=== PATIENT | male | born 1950 | race American Indian/Alaskan Native ===

== ENCOUNTER 2017-08-25 04:40 | Inpatient (IN) | payer MEDICARE ==
[2017-08-25 04:42] VITALS: BMI 31.2
--- NOTE | 2017-08-25 04:49 | ED PDOC ---
Arrival/HPI - General Time Seen by Provider: 08/25/17 04:44 Historian: Spouse - Critical Care Critical Care Minutes: 45 minutes - History of Present Illness Narrative History of Present Illness (Text): 08/25/17 04:42 67 year old male presents to the emergency department via EMS as CODE STROKE due to aphasia and right sided weakness. Patient was last known well at 00:30 which was approximately 4 hours prior to arrival. noticed symptoms 30 minutes ago when patient awoke and called emergency services. She states patient is having trouble finding words. Patient also reports R sided numbness. He denies pain, dyspnea, vomiting, headache. Time/Duration: 1/2 hour Symptom Onset: Sudden Symptom Course: Unchanged Activities at Onset: Rest Context: Home Past Medical History - Provider Review Nursing Documentation Reviewed: Yes - Cardiac Hx Pacemaker: No - Neurological Hx Paralysis: No - Hematological/Oncological Hx Blood Transfusions: No - Musculoskeletal/Rheumatological Hx Musculoskeletal Disorders: No - Psychiatric Hx Emotional Abuse: No Hx Physical Abuse: No Hx Substance Use: No - Anesthesia Hx Anesthesia Reactions: No Hx Malignant Hyperthermia: No - Suicidal Assessment Feels Threatened In Home Enviroment: No Family/Social History - Physician Review Nursing Documentation Reviewed: Yes Family/Social History: No Known Family HX Hx Alcohol Use: Yes (2-3 DRINKS WEEKEND) Hx Substance Use: No Allergies/Home Meds Allergies/Adverse Reactions: Allergies No Known Allergies Allergy (Verified 08/25/17 04:43) Home Medications: Home Meds Medication Instructions Recorded Confirmed Atorvastatin [Lipitor] 40 mg PO QPM 07/22/14 07/23/14 Carvedilol 3.125 mg PO BID 07/22/14 07/23/14 Furosemide 20 mg PO Q48H 07/22/14 07/23/14 Glimepiride 4 mg PO BID 07/22/14 07/23/14 Lisinopril 20 mg PO QAM 07/22/14 07/23/14 Review of Systems - Physician Review All systems were reviewed & negative as marked: Yes - Review of Systems Constitutional: absent: Fevers Gastrointestinal: absent: Nausea, Vomiting Physical Exam - Physical Exam Narrative Physical Exam (Text): 08/25/17 04:48 Constitutional: No acute distress. Head: Normocephalic. Atraumatic. Eyes: PERRL. ENT: Moist mucous membranes. Neck: Supple. Cardiovascular: Regular rate. Chest: No tenderness. Respiratory: Clear to auscultation bilaterally. GI: Soft. Nontender. Nondistended. Back: No CVA tenderness. Musculoskeletal: No tenderness or swelling of extremities. Skin: No rash. Neurologic: Right sided arm and leg motor weakness. Right sided sensation decreased. Aphasia. Oriented x 3. Vital Signs Reviewed: Yes Vital Signs Temp Pulse Resp BP Pulse Ox 08/25/17 05:00 97.4 F L 91 H 16 152/89 H 99 Medical Decision Making ED Course and Treatment: 08/25/17 04:42 Impression: 67 year old male presents to the emergency department due to aphasia and right sided weakness. Plan: -- CT scan of head (code stroke) -- Chest xray -- EKG -- Labs -- Stroke team consult -- Reassess and disposition Progress Notes: 08/25/17 04:43 Code stroke activated. 08/25/17 04:59 EXAM:CT Head Without Intravenous Contrast FINDINGS: Brain:No acute intra or extra-axial hemorrhage. No mass or midline shift. Clear sinuses. No calvarial fracture. Senescent thinning of the right orbital lens. IMPRESSION: No intracranial hemorrhage. 08/25/17 05:32 EKG: Ordered, reviewed, and independently interpreted the EKG. Rate : 92 BPM Rhythm : NSR Interpretation : LBBB. No ST-segment elevations. 08/25/17 05:33 Chest xray: no consolidation Dr. Witt recommends Plavix 300 and ASA 81, IVF bolus. Insulin administered for hyperglycemia. Patient admitted to hospitalist service. 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 - Critical Care Critical Care Minutes: 45 minutes - Lab Interpretations Lab Results: 08/25/17 05:00 08/25/17 05:00 Lab Results 08/25/17 05:00: Sodium 139, Potassium 4.6, Chloride 97 L, Carbon Dioxide 34 H, Anion Gap 13, BUN 25 H, Creatinine 1.3, Est GFR ( Amer) > 60, Est GFR ( Non-Af Amer) 55, Random Glucose 353 H* D, Calcium 10.8 H, Total Bilirubin 0.4, AST 22, ALT 27, Alkaline Phosphatase 118, Troponin I 0.02, Total Protein 8.2, Albumin 4.2, Globulin 3.9, Albumin/Globulin Ratio 1.1, Triglycerides 143, Cholesterol 166, LDL Cholesterol Direct 88, HDL Cholesterol 48 08/25/17 05:00: PT 11.2, INR 0.97, APTT 25.6 08/25/17 05:00: WBC 8.2 D, RBC 4.50, Hgb 12.9 L, Hct 38.2 L, MCV 84.9 D, MCH 28.7, MCHC 33.8, RDW 11.9, Plt Count 264, MPV 11.7 H, Gran % 62.9, Lymph % (Auto ) 25.9, [place] % (Auto) 9.5 H, Eos % (Auto) 1.3 L, Baso % (Auto) 0.4, Gran # 5.14 , Lymph # (Auto) 2.1, [place] # (Auto) 0.8 H, Eos # (Auto) 0.1, Baso # (Auto) 0.03 - RAD Interpretation Radiology Orders: 08/25/17 04:45 HEAD W/O (CODE STROKE) [CT] Stat CHEST ONE VIEW [RAD] Stat 08/25/17 05:08 CTA HEAD/NECK CODE STROKE [CT] Stat - Medication Orders Current Medication Orders: Sodium Chloride (Sodium Chloride 0.9%) 1,000 mls @ 100 mls/hr IV .Q10H YARITZA Last Admin: 08/25/17 05:02 Dose: 100 mls/hr eMAR Start Stop Document 08/25/17 05:02 RG (Rec: 08/25/17 05:33 [id number] Intravenous Solution Start Date 08/25/17 Start Time 05:02 Discontinued Medications Aspirin (Aspirin Chewable) 81 mg PO STAT STA Stop: 08/25/17 05:10 Last Admin: 08/25/17 05:34 Dose: 81 mg Clopidogrel Bisulfate (Plavix) 300 mg PO STAT STA Stop: 08/25/17 05:10 Last Admin: 08/25/17 05:34 Dose: 300 mg Sodium Chloride (Sodium Chloride 0.9%) 1,000 mls @ 999 mls/hr IV .Q1H1M STA Stop: 08/25/17 06:08 Last Admin: 08/25/17 05:10 Dose: 999 mls/hr eMAR Start Stop Document 08/25/17 05:10 RG (Rec: 08/25/17 05:34 [id number] Intravenous Solution Start Date 08/25/17 Start Time 05:10 Insulin Human Regular (Humulin R) 8 units SC STAT STA Stop: 08/25/17 05:50 Last Admin: 08/25/17 06:01 Dose: 8 units MAR Blood Glucose Document 08/25/17 06:01 [facility] (Rec: 08/25/17 06:02 [id number]) Blood Glucose Finger Stick Blood Glucose (70-120) 274 Subcutaneous Administrations Document 08/25/17 06:01 (Rec: 08/25/17 06:02 [id number]) Injection Site MAR Injection Site Left Arm Charges for Administration # of Subcutaneous Administrations 1 NIHSS Scale (Parsons) Time Performed: 04:55 - How Severe is the Stoke Baseline Level of Consciousness: 0=Alert LOC to Questions: 0=Both comments correct LOC to commands: 0=Obeys both correctly Best Gaze: 0=Normal Visual: 0=No visual loss Facial: 0=Normal Motor Arm - Left: 0=No drift Motor Arm - Right: 1=Drift noted before 10 sec Motor Leg - Left: 0=No drift Motor Leg - Right: 1=Drift before 5 sec Limb Ataxia: 0=Absent Sensory: 1=Mild to moderate loss Best Language: 1=Mild to moderate aphasia Dysarthia: 0=Normal articulation Extinction & Inattention (Neglect): 0=Normal, no object Score: 4 Risk Level: Minor Stroke Risk rTPA Inclusion/Exclusion - Refusal of Treatment Patient Refused Treatment: No - Inclusion Criteria for Altepase Patient is 18 years or Older: Yes The Clinical Diagnosis of Ischemic Stroke That is Causing a Potentially Disabling Neurological Deficit: Yes Time of Onset is Well Established to be Less Than 270 Minute Before Treatment Would Begin: No Risk/Benefit Discussed With Patient/Family Member Present: Yes - Scribe Statement The provider has reviewed the documentation as recorded by the Mady Wang Provider Scribe Attestation: All medical record entries made by the Scribe were at my direction and personally dictated by me. I have reviewed the chart and agree that the record accurately reflects my personal performance of the history, physical exam, medical decision making, and the department course for this patient. I have also personally directed, reviewed, and agree with the discharge instructions and disposition. Disposition/Present on Arrival - Present on Arrival Any Indicators Present on Arrival: No - Disposition Have Diagnosis and Disposition been Completed?: Yes Diagnosis: CVA (cerebral vascular accident) Disposition: HOSPITALIZED Disposition Time: 06:14 Patient Plan: Admission, Telemetry Condition: GUARDED Referrals: Nicole Bermeo MD [Primary Care Provider] - Follow up with primary
[2017-08-25] MEDS: Sodium Chloride 0.9% 1,000 ML IV SCH ×2 (05:02→10:00)
[2017-08-25] MEDS ORDERED: Sodium Chloride 0.9% 1,000 ML IV STA (05:08)
[2017-08-25 05:19] LABS: BASO # 0.03 K/mm3 (0.0-2.0); BASO % 0.4 % (0.0-3.0); EOS # 0.1 (0.0-0.7); EOS % 1.3 % (1.5-5.0); GRAN # 5.14 (1.4-6.5); GRAN % 62.9 % (50.0-68.0); HEMOGLOBIN 12.9 g/dL (14.0-18.0); LYMPH # 2.1 (1.2-3.4); LYMPH % 25.9 % (22.0-35.0); MEAN CELL VOLUME 84.9 fl (80.0-105.0); MEAN CORPUSCULAR HEMOGLOBIN 28.7 pg (25.0-35.0); MEAN CORPUSCULAR HGB CONC 33.8 g/dl (31.0-37.0); MEAN PLATELET VOLUME 11.7 fl (7.0-11.0); MONO # 0.8 (0.1-0.6); MONO % 9.5 % (1.0-6.0); RBC 4.5 10^6/uL (3.5-6.1); RED CELL DISTRIBUTION WIDTH 11.9 % (11.5-14.5); WHITE BLOOD COUNT 8.2 10^3/ul (4.5-11.0)
[2017-08-25 05:38] LABS: INR 0.97 (0.93-1.08); LDL CHOLESTEROL 88 mg/dL (0-129); PARTIAL THROMBOPLASTIN TIME 25.6 Seconds (25.1-36.5); PROTHROMBIN TIME 11.2 SECONDS (9.4-12.5)
[2017-08-25 05:41] LABS: TROPONIN I 0.02 ng/mL
[2017-08-25 05:44] LABS: ALB/GLOB RATIO 1.1 (1.1-1.8); ALBUMIN 4.2 g/dL (3.0-4.8); ALT/SGPT 27 U/L (7-56); AST/SGOT 22 U/L (17-59); BLOOD UREA NITROGEN 25 mg/dL (7-21); CALCIUM 10.8 mg/dL (8.4-10.5); GFR AFRICAN-AMERICAN > 60; GFR NON-AFRICAN AMERICAN 55; HDL CHOLESTEROL 48 mg/dL (29-60)
[2017-08-25] MEDS ORDERED: Insulin Regular 1 UNITS/0.01 ML ML SC STA (05:49)
--- NOTE | 2017-08-25 07:07 | ED PDOC ---
Physical Exam Vital Signs Temp Pulse Resp BP Pulse Ox 08/25/17 07:07 84 14 141/81 100 08/25/17 06:55 87 18 146/84 100 08/25/17 06:38 80 12 137/78 100 08/25/17 06:15 87 12 142/78 99 08/25/17 06:00 87 16 146/77 99 08/25/17 05:40 85 12 135/76 99 08/25/17 05:01 88 16 152/89 H 100 08/25/17 05:00 97.4 F L 91 H 16 152/89 H 99 Finger Stick Blood Glucose: 274 Medical Decision Making ED Course and Treatment: 08/25/17 07:00 Case signed out to me by Dr. Scott. Patient is a 67 Year old male, who presented to the Emergency department via EMS as CODE STROKE due to aphasia and right sided weakness. Patient will be admitted. 08/25/17 07:[address] Horton who agrees to admission to telemetry. - Lab Interpretations Lab Results: 08/25/17 05:00 08/25/17 05:00 Lab Results 08/25/17 05:00: Blood Type B POSITIVE, Antibody Screen Negative, BBK History Checked No verified bt 08/25/17 05:00: Sodium 139, Potassium 4.6, Chloride 97 L, Carbon Dioxide 34 H, Anion Gap 13, BUN 25 H, Creatinine 1.3, Est GFR ( Amer) > 60, Est GFR ( Non-Af Amer) 55, Random Glucose 353 H* D, Calcium 10.8 H, Total Bilirubin 0.4, AST 22, ALT 27, Alkaline Phosphatase 118, Troponin I 0.02, Total Protein 8.2, Albumin 4.2, Globulin 3.9, Albumin/Globulin Ratio 1.1, Triglycerides 143, Cholesterol 166, LDL Cholesterol Direct 88, HDL Cholesterol 48 08/25/17 05:00: PT 11.2, INR 0.97, APTT 25.6 08/25/17 05:00: WBC 8.2 D, RBC 4.50, Hgb 12.9 L, Hct 38.2 L, MCV 84.9 D, MCH 28.7, MCHC 33.8, RDW 11.9, Plt Count 264, MPV 11.7 H, Gran % 62.9, Lymph % (Auto ) 25.9, [place] % (Auto) 9.5 H, Eos % (Auto) 1.3 L, Baso % (Auto) 0.4, Gran # 5.14 , Lymph # (Auto) 2.1, [place] # (Auto) 0.8 H, Eos # (Auto) 0.1, Baso # (Auto) 0.03 - RAD Interpretation Radiology Orders: 08/25/17 04:45 HEAD W/O (CODE STROKE) [CT] Stat CHEST ONE VIEW [RAD] Stat 08/25/17 05:08 CTA HEAD/NECK CODE STROKE [CT] Stat - Medication Orders Current Medication Orders: Sodium Chloride (Sodium Chloride 0.9%) 1,000 mls @ 100 mls/hr IV .Q10H YARITZA Last Admin: 08/25/17 05:02 Dose: 100 mls/hr eMAR Start Stop Document 08/25/17 05:02 RG (Rec: 08/25/17 05:33 [facility] [id number]) Intravenous Solution Start Date 08/25/17 Start Time 05:02 Discontinued Medications Aspirin (Aspirin Chewable) 81 mg PO STAT STA Stop: 08/25/17 05:10 Last Admin: 08/25/17 05:34 Dose: 81 mg Clopidogrel Bisulfate (Plavix) 300 mg PO STAT STA Stop: 08/25/17 05:10 Last Admin: 08/25/17 05:34 Dose: 300 mg Sodium Chloride (Sodium Chloride 0.9%) 1,000 mls @ 999 mls/hr IV .Q1H1M STA Stop: 08/25/17 06:08 Last Admin: 08/25/17 05:10 Dose: 999 mls/hr eMAR Start Stop Document 08/25/17 05:10 RG (Rec: 08/25/17 05:34 [facility] [id number]) Intravenous Solution Start Date 08/25/17 Start Time 05:10 End Date 08/25/17 End time 06:10 Total Infusion Time 60 Insulin Human Regular (Humulin R) 8 units SC STAT STA Stop: 08/25/17 05:50 Last Admin: 08/25/17 06:01 Dose: 8 units MAR Blood Glucose Document 08/25/17 06:01 RG (Rec: 08/25/17 06:02 [facility] [id number]) Blood Glucose Finger Stick Blood Glucose (70-120) 274 Subcutaneous Administrations Document 08/25/17 06:01 [facility] (Rec: 08/25/17 06:02 [facility] [id number]) Injection Site MAR Injection Site Left Arm Charges for Administration # of Subcutaneous Administrations 1 - Scribe Statement The provider has reviewed the documentation as recorded by the Scribe Rere Leggett Provider Scribe Attestation: All medical record entries made by the Scribe were at my direction and personally dictated by me. I have reviewed the chart and agree that the record accurately reflects my personal performance of the history, physical exam, medical decision making, and the department course for this patient. I have also personally directed, reviewed, and agree with the discharge instructions and disposition. Disposition/Present on Arrival - Present on Arrival Any Indicators Present on Arrival: No History of DVT/PE: No History of Uncontrolled Diabetes: No Urinary Catheter: No History of Decub. Ulcer: No History Surgical Site Infection Following: None - Disposition Have Diagnosis and Disposition been Completed?: Yes Diagnosis: CVA (cerebral vascular accident) Disposition: HOSPITALIZED Disposition Time: 06:07 Patient Plan: Admission Patient Problems: Current Active Problems Problem Status Onset CVA (cerebral vascular accident) Acute Condition: GUARDED
[2017-08-25 07:36] LABS: PH,URINE 7.5 (4.7-8.0); URINE BILIRUBIN NEGATIVE (NEGATIVE); URINE BLOOD NEGATIVE (NEGATIVE); URINE GLUCOSE (UA) >=1000 mg/dL (NEGATIVE); URINE LEUKOCYTE ESTERASE NEGATIVE Leu/uL (NEGATIVE); URINE PROTEIN NEGATIVE mg/dL (<30 mg/dL); URINE UROBILINOGEN 0.2 E.U./dL (<1 E.U./dL)
[2017-08-25 07:38] LABS: URINE APPEARANCE CLEAR (CLEAR); URINE COLOR STRAW (YELLOW)
--- NOTE | 2017-08-25 09:30 | CT ---
PROCEDURE: CT HEAD WITHOUT CONTRAST. HISTORY: Code Stroke COMPARISON: None available. TECHNIQUE: Axial computed tomography images were obtained through the head/brain without intravenous contrast. Coronal and sagittal reconstructed images. Radiation dose: Total exam DLP = 967.15 mGy-cm. This CT exam was performed using one or more of the following dose reduction techniques: Automated exposure control, adjustment of the mA and/or kV according to patient size, and/or use of iterative reconstruction technique. FINDINGS: HEMORRHAGE: No intracranial hemorrhage. BRAIN: No mass effect or edema. No atrophy or chronic microvascular ischemic changes. VENTRICLES: Unremarkable. No hydrocephalus. CALVARIUM: Unremarkable. PARANASAL SINUSES: Unremarkable as visualized. No significant inflammatory changes. MASTOID AIR CELLS: Unremarkable as visualized. No inflammatory changes. OTHER FINDINGS: None. IMPRESSION: No acute intracranial abnormalities. No significant findings to account for the clinical presentation. Concordant results (preliminary interpretation) provided by [employer]. Procedure Completed: 04:51 Preliminary ([facility]) Report: Dictated and Authenticated: 04:59 Final Interpretation: 09:29 August 25, 2017.
--- NOTE | 2017-08-25 09:30 | CP.PCM.CON ---
History of Present Illness - History of Present Illness History of Present Illness: This is a telestroke visit being conducted through bi-directional video conference with the [employer]. The patient is a 67-year-old man with a past medical history of HTN, DM, HLD, who woke up this morning with word-finding difficulty, and right side numbness. He was brought to the ED and a CT scan of the head was done, which did not reveal any acute findings. NIHSS was 4. He was not a candidate for IV tPA due to being outside the 4.5 hour time window. CTA of the head/neck was done and there was no large vessel occlusion noticed (official report not completed). Review of Systems - Review of Systems All systems: reviewed and no additional remarkable complaints except Past Patient History - Past Social History Smoking Status: Never Smoked - CARDIAC Hx Pacemaker: No - PULMONARY Hx Respiratory Disorders: No - NEUROLOGICAL Hx Paralysis: No - HEENT Hx HEENT Problems: No - RENAL Hx Chronic Kidney Disease: No - ENDOCRINE/METABOLIC Hx Diabetes Mellitus Type 2: Yes - HEMATOLOGICAL/ONCOLOGICAL Hx Blood Transfusions: No - INTEGUMENTARY Hx Dermatological Problems: No - MUSCULOSKELETAL/RHEUMATOLOGICAL Hx Musculoskeletal Disorders: No - GASTROINTESTINAL Hx Gastrointestinal Disorders: No - GENITOURINARY/GYNECOLOGICAL Hx Genitourinary Disorders: No - PSYCHIATRIC Hx Emotional Abuse: No Hx Physical Abuse: No Hx Substance Use: No - SURGICAL HISTORY Hx Surgeries: Yes - ANESTHESIA Hx Anesthesia Reactions: No Hx Malignant Hyperthermia: No Meds Allergies/Adverse Reactions: Allergies Allergy/AdvReac Type Severity Reaction Status Date / Time No Known Allergies Allergy Verified 08/25/17 04:43 - Medications Medications: Current Medications Sodium Chloride (Sodium Chloride 0.9%) 1,000 mls @ 100 mls/hr IV .Q10H YARITZA Last Admin: 08/25/17 05:02 Dose: 100 mls/hr Physical Exam - Constitutional Appears: Well - Head Exam Head Exam: ATRAUMATIC, NORMAL INSPECTION, NORMOCEPHALIC - Eye Exam Eye Exam: EOMI, Normal appearance, PERRL - Neurological Exam Neurological exam: Alert, CN II-XII Intact, Oriented x3 Additional comments: Able to converse, but has some difficulty with expression of parts of speech, but repetition was intact and speech was mostly fluent. Slightly dysarthric. Right facial and arm numbness, but no significant weakness. Drift of left arm was notable. NIHSS= 4 Results - Vital Signs Recent Vital Signs: Last Vital Signs Temp 97.4 F L 08/25/17 05:00 Pulse 86 08/25/17 08:41 Resp 18 08/25/17 08:41 BP 146/97 H 08/25/17 08:41 Pulse Ox 100 08/25/17 08:41 - Labs Result Diagrams: 08/25/17 05:00 08/25/17 05:00 Labs: Laboratory Results - last 24 hr 08/25/17 08/25/17 06:19 07:16 POC Glucose (mg/dL) 263 H Urine Color Straw Urine Appearance Clear Urine pH 7.5 Ur Specific [place] <= 1.005 Urine Protein Negative Urine Glucose (UA) >=1000 Urine Ketones Negative Urine Blood Negative Urine Nitrate Negative Urine Bilirubin Negative Urine Urobilinogen 0.2 Ur Leukocyte Esterase Negative Assessment & Plan (1) CVA (cerebral vascular accident) Assessment and Plan: Likely due to small vessel, subcortical infarct or could be due to distal left MCA occlusion not initially noticed on CTA. I recommend the followin. Telemetry 2. MRI brain without contrast 3. Echocardiogram 4. HbA1c, Lipid panel, B12, folate, vitamin D, TSH, homocysteine 5. Load with Plavix 300 mg once, and aspirin 81 mg once, and continue Plavix 75 mg daily along with aspirin 81 mg daily for 21 days. Afterward, continue Plavix monotherapy indefinitely. 6. Lipitor 40 mg daily 7. Control serum glucose 8. Fluids with NS at 100 mL/hr 9. PT/OT eval 10. DVT Px 11. Case management consult Thank you. Status: Acute
--- NOTE | 2017-08-25 09:31 | RAD ---
PROCEDURE: CHEST RADIOGRAPH, 1 VIEW HISTORY: Code Stroke COMPARISON: None available. FINDINGS: LUNGS: Clear. PLEURA: No pneumothorax or pleural fluid seen. CARDIOVASCULAR: No radiographic findings to suggest acute or significant cardiovascular disease. Position/ configuration of pacemaker device: Satisfactory. OSSEOUS STRUCTURES: No significant abnormalities. VISUALIZED UPPER ABDOMEN: Normal. OTHER FINDINGS: None. IMPRESSION: No active disease.
[2017-08-25] MEDS ORDERED: Metoprolol 1 mg/ml Inj IVP PRN (09:45)
[2017-08-25] MEDS: Insulin Lispro (humaLOG) MEDIUM Coverage SC SCH ×3 (12:15→22:32)
--- NOTE | 2017-08-25 14:29 | CP.PCM.HP ---
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 As per and pt, awoke this AM was unable to say many words that he was trying to say, and complained of right-numbness. originally reported to the ED that pt last seen well at 0030 today, however on further review of symptoms, notes pt had trouble maintaining a staffing clerk on his mug last night, dropping it, and reporting feeling off at that time ; so likely onset of stroke > 6 hrs. At time of arrival to the ED, it was determined that patient was not a candidate for tPA, due to unclear onset of symptoms, and time last seen normal was in excess of 3-hr window. Patient displays full comprehension of words, but exhibits some difficulty speaking several of them. Oriented to self, location, year, situation. Able to follow most commands without overt difficulty. Notes diminished sensation on right side of body, including face and extremities. Denies paresis, but reports unable to ambulate well; when he woke her up, was trying to get out of bed and had to hold onto surrounding furniture to prevent falling to ground. AAOx3 (oriented to self, location, year), denies chest pain, shortness of breath, uncontrolled N/V/D, vision changes, syncope/near-sycnope, paresis, complete loss of sensation in extremities, or sensation of choking. All other ROS in 12-system review negative. PMH: as above PSH: cardiac cath with stent placement, Defibrilator implantation, sigmoid resection Fam Hx: HTN and CAD in family, denies any fam hx of stroke or [place] Soc Hx: denies tobacco, illicits, IVDA; admits to social EtOH PMD: Dr. Bermoe Present on Admission - Present on Admission Any Indicators Present on Admission: Yes History of DVT/PE: No History of Uncontrolled Diabetes: Yes Urinary Catheter: No Review of Systems - Review of Systems All systems: reviewed and no additional remarkable complaints except (as per HPI ) Past Patient History - Past Social History Smoking Status: Former Smoker - CARDIAC Hx Hypertension: Yes - PULMONARY Hx Respiratory Disorders: No - NEUROLOGICAL Hx Neurological Disorder: No - HEENT Hx HEENT Problems: No - RENAL Hx Chronic Kidney Disease: No - ENDOCRINE/METABOLIC Hx Diabetes Mellitus Type 2: Yes - HEMATOLOGICAL/ONCOLOGICAL Hx Blood Transfusions: No - INTEGUMENTARY Hx Dermatological Problems: No - MUSCULOSKELETAL/RHEUMATOLOGICAL Hx Falls: Yes - GASTROINTESTINAL Hx Gastrointestinal Disorders: No - GENITOURINARY/GYNECOLOGICAL Hx Genitourinary Disorders: No - PSYCHIATRIC Hx Emotional Abuse: No Hx Physical Abuse: No - SURGICAL HISTORY Hx Surgeries: Yes - ANESTHESIA Hx Anesthesia Reactions: No Hx Malignant Hyperthermia: No Meds Allergies/Adverse Reactions: Allergies Allergy/AdvReac Type Severity Reaction Status Date / Time No Known Allergies Allergy Verified 08/25/17 04:43 Physical Exam - Constitutional Appears: Non-toxic, No Acute Distress, Chronically Ill - Head Exam Head Exam: ATRAUMATIC, NORMOCEPHALIC - Eye Exam Eye Exam: EOMI, Normal appearance (dirty sclera, otherwise normal appearing), PERRL. absent: Conjunctival injection, Scleral icterus Pupil Exam: NORMAL ACCOMODATION, PERRL. absent: Fixed, Irregular, Unequal Additional comments: decreased right peripheral field view - ENT Exam ENT Exam: Mucous Membranes Moist. absent: Mucous Membranes Dry Additional comments: mouth opens symmetrically, no uvular deviation, palate rises equally and appropriately no oral lesions appreciated Word-finding difficulties, but articulation otherwise intact - Neck Exam Neck exam: Positive for: Full Rom. Negative for: Lymphadenopathy, Thyromegaly - Respiratory Exam Respiratory Exam: Clear to Auscultation Bilateral, NORMAL BREATHING PATTERN. absent: Accessory Muscle Use, Chest Wall Tenderness, Decreased Breath Sounds, Rales, Rhonchi, Wheezes - Cardiovascular Exam Cardiovascular Exam: REGULAR RHYTHM, RRR, +S1, +S2. absent: Bradycardia, Tachycardia, Irregular Rhythm, JVD, +S4 Additional comments: scar over site of Implantable defibrilator placement - Extremities Exam Extremities exam: Positive for: normal inspection, pedal pulses present. Negative for: calf tenderness, pedal edema, tenderness - Neurological Exam Additional comments: awake and alert, oriented to self/location/year word finding difficulties, but when able to speak the words he wants, speech is mostly clear and articulate diminished sensation along right half of body (confirmed on testing of UE, LE, trunk, and face) diminished Right peripheral visual field as compared to left drift down of RLE when held above bed for 5 seconds, right arm pronator drift with eyes closed no gross resting or intention tremors appreciated 5/5 L upper and lower extremity motor strength, 5/5 left staffing clerk strength; 3+-4/5 RLE/RUE/R staffing clerk motor strength Passive ROM intact and equal bilaterally, active ROM appears minorly decreased on R-side due to weakness and poor R-sided coordination - Psychiatric Exam Psychiatric exam: Normal Affect, Normal Mood - Skin Skin Exam: Dry, Intact, Normal Color, Warm Results - Vital Signs Recent Vital Signs: Last Vital Signs Temp 98.8 F 08/25/17 12:00 Pulse 76 08/25/17 12:00 Resp 18 08/25/17 12:00 BP 125/71 08/25/17 12:00 Pulse Ox 95 08/25/17 10:24 - Labs Result Diagrams: 08/25/17 05:00 08/25/17 05:00 Labs: Laboratory Results - last 24 hr 08/25/17 08/25/17 08/25/17 06:19 07:16 08:10 POC Glucose (mg/dL) 263 H Urine Color Straw Urine Appearance Clear Urine pH 7.5 Ur Specific [place] <= 1.005 Urine Protein Negative Urine Glucose (UA) >=1000 Urine Ketones Negative Urine Blood Negative Urine Nitrate Negative Urine Bilirubin Negative Urine Urobilinogen 0.2 Ur Leukocyte Esterase Negative Blood Type Confirm B POSITIVE Assessment & Plan - Assessment and Plan (Free Text) Assessment: This is a 67 yo M with PMH of DMII, HTN, CAD s/p stent, Systolic and diastolic CHF with EF of 26%, Hx of arrthythmia s/p Defibrilator, and diverticulosis s/p sigmoid resection (2005) who presents with new onset R-sided numbness and speech difficulties. He was admitted for likely stroke; not a tPA candidate due to time-frame of sx. Plan: 1) Acute stroke -CT head negative for acute process, CTA head and neck negative for acute occlusion; NIHSS 4 as per ED score -Neuro consulted: loaded on Plavix and ASA in ED, will continue with daily doses of 75mg and 81mg respectively starting tmr for 21 days, then monotherapy with Plavix -As per Neurio, more likely dysarthia than aphasia, could be small vessel subcortical infarct vs distal L MCA not seen on CT; recs MRI and Echo, but defibrilator is not MRI-compatible as per [facility] gastroenterology technician Billy (spoke to @ 1357 on 08/25/17), so will have to get repeat CT head in 24 hrs instead of MRI -A1c, Lipid panel, folate, B12, TSH, homocysteine, and Vit D ordered, f/u -PT/OT, will likely need acute rehab when ready for discharge -Speech/swallow consult placed, NPO pending swallow study -holding all home hypoglycemics due to stroke, unlikely 2/2 hypoglycemia as AM blood glucoses in journal > 250 for several days, and up to 350 on admit, but now not able to eat, so will cover with Medium sliding scale insulin for now -avoid too-aggressive drops in BP, want to avoid watershed infarct, SBP 140's- 160s since admit, avoid drops > 25% per day, holding home losartan/hctz, holding home coreg, starting Lasix 20mg IVP qHS with hold parameter if SBP < 130 , PRN lopressor 5mg q6 for arrhythmia or HR > 110 -IVF, s/p 1L bolus NS, now 40cc/hr due to hx of CHF with EF 26% -If passes swallow study, start Lipitor 40mg daily 2) HTN -avoid overly aggressive control of BP, want to avoid watershed infarct in setting of acute stroke -med regimen as above 3) Diastolic/systolic CHF with EF 26% -s/p defibrilator -holding home coreg due to NPO pending swallow study, PRN lopressor 5mg q6 for HR > 110 -holding home Lisinopril/HCTZ, PO Lasix 4) DMII -blood glucose from home AM readings > 250 for 4 days -holding oral hypoglycemics in setting of NPO, holding home insulin regimen and covering with Med-Lispro sliding scale and fingersticks q6 -A1c pending -blood glucose goal 140-180, avoid hypoglycemic episodes as can cause/ exacerbate stroke sx Dispo: Telemetry, pending repeat Head CT, pending additional labs, pending PT assessment, Pending swallow eval FEN: NPO pending swallow study, NS 40cc/hr Access: Peripheral IV Consults: Neuro Ppx: Protonix for GI, SCDs for DVT Patient seen, reviewed, and discussed with attending, Dr. Horton Decision To Admit - Pt Status Changed To: Hospital Disposition Of: Inpatient Admission - Admit Certification Admit to Inpatient:: After my assessment, the patient will require hospitalization for at least two midnights. This is because of the severity of symptoms shown, intensity of services needed, and/or the medical risk in this patient being treated as an outpatient. - . Bed Request Type: Telemetry <Jasmine Horton - Last Filed: 08/25/17 16:19> Results - Vital Signs Recent Vital Signs: Last Vital Signs Temp 98.8 F 08/25/17 12:00 Pulse 76 08/25/17 12:00 Resp 18 08/25/17 12:00 BP 125/71 08/25/17 12:00 Pulse Ox 95 08/25/17 10:24 - Labs Result Diagrams: 08/25/17 05:00 08/25/17 05:00 Labs: Laboratory Results - last 24 hr 08/25/17 08/25/17 08/25/17 06:19 07:16 08:10 POC Glucose (mg/dL) 263 H Urine Color Straw Urine Appearance Clear Urine pH 7.5 Ur Specific [place] <= 1.005 Urine Protein Negative Urine Glucose (UA) >=1000 Urine Ketones Negative Urine Blood Negative Urine Nitrate Negative Urine Bilirubin Negative Urine Urobilinogen 0.2 Ur Leukocyte Esterase Negative Blood Type Confirm B POSITIVE 08/25/17 12:09 POC Glucose (mg/dL) 251 H Urine Color Urine Appearance Urine pH Ur Specific [place] Urine Protein Urine Glucose (UA) Urine Ketones Urine Blood Urine Nitrate Urine Bilirubin Urine Urobilinogen Ur Leukocyte Esterase Blood Type Confirm Attending/Attestation - Attestation I have personally seen and examined this patient.: Yes I have fully participated in the care of the patient.: Yes I have reviewed all pertinent clinical information: Yes Notes (Text): 08/25/17 16:15 67 year old male with past medical history of hypertension, diabetes, CAD s/p stent and cardiomyopathy s/p defibrillator who presents with complaint of right sides numbness and difficulty with speech which he noted last night. He is admitted for suspected CVA. Initial CT head and CTA head/neck were negative. He was seen by neurology and started on aspirin, plavix and statin. Will obtain echocardiogram and repeat CT head tomorrow (patient unable to have MRI). PT and sp/sw evaluation is requested. Jasmine Horton MD Hospitalist.
--- NOTE | 2017-08-25 14:48 | CARD ---
APPROVED REPORT EKG Measurement Heart [id number] <Conclusion> Normal sinus rhythm Left axis deviation Nonspecific intraventricular conduction delay Abnormal ECG
--- NOTE | 2017-08-25 16:50 | CT ---
HISTORY: Aphasia. Hemiparesis. COMPARISON: Comparison made CT scan brain earlier same day TECHNIQUE: Contiguous helical/transaxial images of the neck were obtained from the level of the skull-base to the superior mediastinum in the arteriographic phase of enhancement. Coronal and sagittal reformats or also generated. IV contrast dose: 150 cc Omnipaque 350 Radiation Dose - DLP: 755.4 mGy-cm This CT exam was performed using one or more of the following dose reduction techniques: Automated exposure control, adjustment of the mA and/or kV according to patient size, and/or use of iterative reconstruction technique. FINDINGS: The visualized portions of the aortic arch and origins of the great vessels widely patent with minimal left inferolateral border of the aortic arch. Note that the origins of the right brachiocephalic and left common carotid artery are poorly seen due to streak and beam hardening artifact arising from pacemaker/defibrillator leads. The left common carotid artery is widely patent. Minor atherosclerotic plaque seen along anterolateral margin of the left carotid bifurcation with no significant stenosis of the origin of the left internal carotid artery. . The remaining right internal carotid artery is patent. Common carotid arteries are widely patent. Minor atherosclerotic plaque seen along the posterior margins of both carotid bifurcations left-side greater than the right with no significant stenosis. The visualized internal carotid arteries including the petrous, cavernous and carotid segments are patent although there are mild partially calcified atherosclerotic plaque along the cavernous segments. Vertebral arteries are patent throughout neither of which appear more dominant than the other. . Basilar artery patent. The visualized major branches of the [place] of [place] including the at distal cerebral vessels of the anterior middle and posterior cerebral arteries are patent as well and are relatively symmetric. No evidence of occlusion or significant stenosis. No evidence of large aneurysm nor vascular malformation. The note made of what appears to represent some chronic atelectasis and or scarring lateral aspect right lower lobe bordering the pleural surface. There may also be some minimal pleural base calcification at this location as well. IMPRESSION: Mild partially calcified atherosclerotic plaque of both carotid bifurcations left greater than right. No significant stenosis. There also partially calcified atherosclerotic plaque changes both cavernous carotid segments with mild localized narrowing however no evidence of occlusion of. The visualized cerebral vasculature also patent without evidence of occlusion significant stenosis or large aneurysm - vascular malformation.
[2017-08-26] MEDS: Sodium Chloride 0.9% 1,000 ML IV SCH (05:46)
[2017-08-26 06:21] LABS: BASO # 0.04 K/mm3 (0.0-2.0); BASO % 0.7 % (0.0-3.0); EOS # 0.1 (0.0-0.7); EOS % 2.3 % (1.5-5.0); GRAN # 2.81 (1.4-6.5); GRAN % 49.7 % (50.0-68.0); HEMOGLOBIN 12.4 g/dL (14.0-18.0); LYMPH # 2.2 (1.2-3.4); LYMPH % 38.5 % (22.0-35.0); MEAN CORPUSCULAR HEMOGLOBIN 27.8 pg (25.0-35.0); MEAN CORPUSCULAR HGB CONC 32.7 g/dl (31.0-37.0); MEAN PLATELET VOLUME 11.9 fl (7.0-11.0); MONO # 0.5 (0.1-0.6); MONO % 8.8 % (1.0-6.0); RBC 4.46 10^6/uL (3.5-6.1); WHITE BLOOD COUNT 5.7 10^3/ul (4.5-11.0)
[2017-08-26 06:48] LABS: INR 1.01 (0.93-1.08); PARTIAL THROMBOPLASTIN TIME 26.2 Seconds (25.1-36.5); PROTHROMBIN TIME 11.6 SECONDS (9.4-12.5)
[2017-08-26 07:01] LABS: ALBUMIN 3.6 g/dL (3.0-4.8); ALT/SGPT 22 U/L (7-56); AST/SGOT 23 U/L (17-59); BLOOD UREA NITROGEN 12 mg/dL (7-21); CALCIUM 10.2 mg/dL (8.4-10.5); GFR AFRICAN-AMERICAN > 60; GFR NON-AFRICAN AMERICAN > 60
[2017-08-26] MEDS: Insulin Lispro (humaLOG) MEDIUM Coverage SC SCH ×4 (07:36→23:01)
[2017-08-26] MEDS ORDERED: Magnesium Sulfate 1 gm in D5W 1 GM/100 ML BAG IVPB ONE (09:25)
--- NOTE | 2017-08-26 09:29 | CT ---
CT of the head without contrast History. Code stroke 24 are follow-up Comments. CT of the head was performed without IV contrast and was compared study of 08/25/2017. There is a new infarct in the region of the left basal ganglia and insular cortex measuring 9 x 18 mm as seen on image 25 series 4. There is no evidence of hemorrhage. The ventricles and sulci are normal in size. Impression: New infarct in the left basal ganglia and insular cortex
--- NOTE | 2017-08-26 13:25 | CP.PCM.PN ---
Subjective - Date & Time of Evaluation Date of Evaluation: 08/26/17 Time of Evaluation: 13:24 - Subjective Subjective: Mr. Norton was seen and examined at the bedside. He is alert, oriented in all spheres. He denies any headache, dizziness, lightheadedness, blurred vision, nausea, orvomiting. He is able to follow commands with slight dysarthric, Right facial and arm numbness, but no significant weakness. He has bilateral SCD. There was no untoward events overnight. Objective - Vital Signs/Intake and Output Vital Signs (last 24 hours): Temp Pulse Resp BP Pulse Ox 97.8 F 82 18 123/81 97 08/26/17 06:00 08/26/17 06:00 08/26/17 06:00 08/26/17 06:00 08/26/17 06:00 Intake and Output: 08/26/17 08/26/17 06:59 18:59 Intake Total 580 Output Total 900 Balance -320 - Medications Medications: Current Medications Aspirin (Aspirin Chewable) 81 mg PO DAILY [facility] Last Admin: 08/26/17 09:03 Dose: 81 mg Atorvastatin Calcium (Lipitor) 40 mg PO DIN [facility] Last Admin: 08/25/17 17:15 Dose: 40 mg Clopidogrel Bisulfate (Plavix) 75 mg PO DAILY [facility] Last Admin: 08/26/17 09:03 Dose: 75 mg Furosemide (Lasix) 20 mg IVP Q24H [facility] Last Admin: 08/25/17 22:32 Dose: 20 mg Sodium Chloride (Sodium Chloride 0.9%) 1,000 mls @ 40 mls/hr IV .Q24H [facility] Last Admin: 08/25/17 10:00 Dose: 40 mls/hr Insulin Detemir (Levemir) 10 unit SC HS [facility] Insulin Human Lispro (Humalog Med) 0 units SC ACHS [facility] PRN Reason: Protocol Last Admin: 08/26/17 13:04 Dose: 5 units Metoprolol Tartrate (Lopressor) 5 mg IVP Q6H PRN PRN Reason: HR > 110 - Labs Labs: 08/26/17 05:00 08/26/17 05:00 PT 11.6 SECONDS (9.4-12.5) 08/26/17 05:00 INR 1.01 (0.93-1.08) 08/26/17 05:00 APTT 26.2 Seconds (25.1-36.5) 08/26/17 05:00 - Constitutional Appears: No Acute Distress - Head Exam Head Exam: NORMAL INSPECTION - Neurological Exam Neurological Exam: Alert, Awake, Oriented x3 Neuro motor strength exam: Left Upper Extremity: 5, Right Upper Extremity: 4, Left Lower Extremity: 5, Right Lower Extremity: 4 Additional comments: He is alert, oriented, follow simple commands. Sensation is intact. Assessment and Plan (1) CVA (cerebral vascular accident) Assessment & Plan: Case discussed with Dr. Fontenot, continue all current medical, physical, occupational, and speech therapies. Recommend blood pressure and glycemic control. Status: Acute
--- NOTE | 2017-08-26 17:58 | CP.PCM.PN ---
<Divya Stack - Last Filed: 08/26/17 18:06> Subjective - Date & Time of Evaluation Date of Evaluation: 08/26/17 Time of Evaluation: 07:35 - Subjective Subjective: Divya Stack DO PGY-1, Hospitalist Service: Patient seen and examined at bedside. Patient reports weakness in right hand, sensory changes, and change in his speech. He reports it is improved since the time of his admission. Nurse reports patient had two PVCs and non-sustained bradycardia overnight. Objective - Vital Signs/Intake and Output Vital Signs (last 24 hours): Temp Pulse Resp BP Pulse Ox 97.7 F 77 20 119/81 97 08/26/17 17:27 08/26/17 17:27 08/26/17 17:27 08/26/17 17:27 08/26/17 06:00 Intake and Output: 08/26/17 08/26/17 06:59 18:59 Intake Total 580 Output Total 900 Balance -320 - Medications Medications: Current Medications Aspirin (Aspirin Chewable) 81 mg PO DAILY [facility] Last Admin: 08/26/17 09:03 Dose: 81 mg Atorvastatin Calcium (Lipitor) 40 mg PO DIN [facility] Last Admin: 08/25/17 17:15 Dose: 40 mg Clopidogrel Bisulfate (Plavix) 75 mg PO DAILY [facility] Last Admin: 08/26/17 09:03 Dose: 75 mg Furosemide (Lasix) 20 mg IVP Q24H [facility] Last Admin: 08/25/17 22:32 Dose: 20 mg Sodium Chloride (Sodium Chloride 0.9%) 1,000 mls @ 40 mls/hr IV .Q24H [facility] Last Admin: 08/25/17 10:00 Dose: 40 mls/hr Insulin Detemir (Levemir) 10 unit SC HS [facility] Insulin Human Lispro (Humalog Med) 0 units SC ACHS [facility] PRN Reason: Protocol Last Admin: 08/26/17 13:04 Dose: 5 units Metoprolol Tartrate (Lopressor) 5 mg IVP Q6H PRN PRN Reason: HR > 110 - Labs Labs: 08/26/17 05:00 08/26/17 05:00 PT 11.6 SECONDS (9.4-12.5) 08/26/17 05:00 INR 1.01 (0.93-1.08) 08/26/17 05:00 APTT 26.2 Seconds (25.1-36.5) 08/26/17 05:00 - Constitutional Appears: Well, Non-toxic - Head Exam Head Exam: ATRAUMATIC, NORMOCEPHALIC - Eye Exam Eye Exam: Conjunctival injection, EOMI - ENT Exam ENT Exam: Mucous Membranes Moist - Neck Exam Neck Exam: Normal Inspection - Respiratory Exam Respiratory Exam: Clear to Ausculation Bilateral, NORMAL BREATHING PATTERN. absent: Accessory Muscle Use - Cardiovascular Exam Cardiovascular Exam: RRR, +S1, +S2 - GI/Abdominal Exam GI & Abdominal Exam: Soft, Normal Bowel Sounds - Extremities Exam Extremities Exam: Normal Inspection. absent: Calf Tenderness - Back Exam Back Exam: NORMAL INSPECTION. 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 He was admitted for likely stroke; not a tPA candidate due to time-frame of sx. Plan: 1) Acute stroke - repeat CT head shows new infarct in the left basal ganglia and insular cortex - Neuro consulted: loaded on Plavix and ASA in ED, will continue with daily doses of 75mg and 81mg respectively starting tmr for 21 days, then monotherapy with Plavix. 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 (spoke to @ 1357 on 08/25/17), so will have to get repeat CT head in 24 hrs instead of MRI - HgA1c 8.4, TGs 143, Cholesterol 166, LDL 88, HDL 48 -PT/OT recommend acute rehabilitation for stroke -Speech/swallow consult recommend Oral motor exercises for expressive aphasia 3- 5x per week for four weeks and diet of mechanically altered finely chopped level 2 with thin liquids -avoid too-aggressive drops in BP, want to avoid watershed infarct, SBP 140's- 160s since admit, avoid drops > 25% per day, holding home losartan/hctz, holding home coreg, starting Lasix 20mg IVP qHS with hold parameter if SBP < 130 , PRN lopressor 5mg q6 for arrhythmia or HR > 110 -IVF, s/p 1L bolus NS, now 40cc/hr due to hx of CHF with EF 26% 2) HTN - will treat with PRN medications 3) Diastolic/systolic CHF with EF 26% -s/p defibrilator -holding home coreg due to NPO pending swallow study, PRN lopressor 5mg q6 for HR > 110 -holding home Lisinopril/HCTZ, PO Lasix 4) DMII - ISS and Levemir 10 mg HS -blood glucose goal 140-180, avoid hypoglycemic episodes as can cause/ exacerbate stroke sx Dispo: Telemetry and then to acute stroke rehabilitation FEN: NS 40cc/hr Access: Peripheral IV Consults: Neuro Ppx: Protonix for GI, SCDs for DVT Patient seen, reviewed, and discussed with attending, Dr. Jordan. <Marianna Jordan - Last Filed: 08/29/17 15:12> Objective - Vital Signs/Intake and Output Vital Signs (last 24 hours): Temp Pulse Resp BP Pulse Ox 98.3 F 81 20 95/61 L 98 08/29/17 12:00 08/29/17 12:00 08/29/17 12:00 08/29/17 12:00 08/29/17 06:00 Intake and Output: 08/29/17 08/29/17 06:59 18:59 Intake Total 600 Balance 600 - Medications Medications: Current Medications Aspirin (Aspirin Chewable) 81 mg PO DAILY [facility] Last Admin: 08/29/17 09:10 Dose: 81 mg Atorvastatin Calcium (Lipitor) 40 mg PO DIN [facility] Last Admin: 08/28/17 17:10 Dose: 40 mg Carvedilol (Coreg) 3.125 mg PO BID [facility] Last Admin: 08/29/17 09:10 Dose: 3.125 mg Clopidogrel Bisulfate (Plavix) 75 mg PO DAILY [facility] Last Admin: 08/29/17 09:10 Dose: 75 mg Hydrochlorothiazide (Hydrodiuril) 25 mg PO DAILY [facility] Last Admin: 08/29/17 09:11 Dose: 25 mg Insulin Detemir (Levemir) 10 unit SC BID [facility] Last Admin: 08/29/17 09:11 Dose: 10 unit Insulin Human Lispro (Humalog Med) 0 units SC ACHS [facility] PRN Reason: Protocol Last Admin: 08/29/17 12:38 Dose: 3 units Lisinopril (Zestril) 5 mg PO DAILY [facility] Last Admin: 08/29/17 09:11 Dose: 5 mg - Labs Labs: 08/29/17 06:00 08/29/17 06:00 PT 11.6 SECONDS (9.4-12.5) 08/26/17 05:00 INR 1.01 (0.93-1.08) 08/26/17 05:00 APTT 26.2 Seconds (25.1-36.5) 08/26/17 05:00 Attending/Attestation - Attestation I have personally seen and examined this patient.: Yes I have fully participated in the care of the patient.: Yes I have reviewed all pertinent clinical information, including history, physical exam and plan: Yes Notes (Text): 08/29/17 15:08 Medical record note made by the resident after discussion with my direction and input after the patient was personally seen and examined by me. I have reviewed the chart and agree that the record accurately reflects by personal performance of the history, physical exam, data review, and medical decision-making, in the course for the patient. I have also personally directed the plan of care. 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 Management plan was discussed in detail with patient Education was provided.
--- NOTE | 2017-08-26 18:47 | CARD ---
APPROVED REPORT EXAM: Two-dimensional and M-mode echocardiogram with Doppler and color Doppler. INDICATION CVA/TIA BUBBLE STUDY 2D DIMENSIONS Left Atrium (2D)4.7 (1.6-4.0cm)IVSd0.9 (0.7-1.1cm) LVDd6.6 (3.9-5.9cm)PWd0.9 (0.7-1.1cm) LVDs5.7 (2.5-4.0cm)FS (%) 13.3 % LVEF (%)28.1 (>50%) M-Mode DIMENSIONS Aortic Root3.60 (2.2-3.7cm)Aortic Cusp Exc.1.70 (1.5-2.0cm) Aortic Valve AoV Peak Dokledcv900.0cm/Haile Peak GR.9mmHg Mitral Valve MV E Sbskmdli66.2cm/sMV A Qyknvvsr844.0cm/sE/A ratio0.6 TDI Lateral E' Peak V5.07cm/sMedial E' Peak V4.58cm/sE/Lateral E'11.7 E/Medial E'12.9 Pulmonary Valve PV Peak Pcbkcops35.7cm/sPV Peak Grad.2mmHg Tricuspid Valve TR Peak Iuatsijg146om/sRAP [id number] Peak Gr.36mmHg [id number] LEFT VENTRICLE The Left Ventricle is moderately dilated. There is normal left ventricular wall thickness. The systolic function is severely impaired. There is global hypokinesis of the left ventricle. Transmitral Doppler flow pattern is Grade I-abnormal relaxation pattern. No left ventricle thrombus noted on this study. RIGHT VENTRICLE The right ventricle is normal size. There is normal right ventricular wall thickness. Systolic function is mildly reduced. ATRIA The left atrium is mildly dilated. The right atrium size is normal. The interatrial septum is intact with no evidence for an atrial septal defect. AORTIC VALVE The aortic valve is mildly thickened. No aortic regurgitation is present. There is no aortic valvular stenosis. MITRAL VALVE The mitral valve is mildly thickened. Mitral regurgitation is trace. There is no mitral valve stenosis. TRICUSPID VALVE There is mild to moderate pulmonary hypertension. GREAT VESSELS The aortic root is normal in size. The IVC is normal in size and collapses >50% with inspiration. <Conclusion> The Left Ventricle is moderately dilated. There is normal left ventricular wall thickness. The systolic function is severely impaired. There is global hypokinesis of the left ventricle. Transmitral Doppler flow pattern is Grade I-abnormal relaxation pattern. No left ventricle thrombus noted on this study. There is mild to moderate pulmonary hypertension. The interatrial septum is intact with no evidence for an atrial septal defect.
--- NOTE | 2017-08-26 19:31 | CARD ---
APPROVED REPORT EKG Measurement Heart [id number] <Conclusion> Normal sinus rhythm Left axis deviation Incomplete left bundle branch block Nonspecific T wave abnormality Abnormal ECG
[2017-08-26] MEDS ORDERED: Insulin Detemir 100 units/ml Vial (Levemir) SC SCH (22:00)
[2017-08-27] MEDS: Sodium Chloride 0.9% 1,000 ML IV SCH (06:05)
[2017-08-27 06:09] LABS: BASO # 0.04 K/mm3 (0.0-2.0); BASO % 0.6 % (0.0-3.0); EOS # 0.1 (0.0-0.7); EOS % 1.5 % (1.5-5.0); GRAN # 3.94 (1.4-6.5); GRAN % 54.8 % (50.0-68.0); HEMOGLOBIN 12.3 g/dL (14.0-18.0); LYMPH # 2.5 (1.2-3.4); LYMPH % 34.2 % (22.0-35.0); MEAN CELL VOLUME 84.3 fl (80.0-105.0); MEAN CORPUSCULAR HGB CONC 33.2 g/dl (31.0-37.0); MEAN PLATELET VOLUME 11.8 fl (7.0-11.0); MONO # 0.6 (0.1-0.6); MONO % 8.9 % (1.0-6.0); RBC 4.4 10^6/uL (3.5-6.1); RED CELL DISTRIBUTION WIDTH 12.1 % (11.5-14.5); WHITE BLOOD COUNT 7.2 10^3/ul (4.5-11.0)
[2017-08-27 06:25] LABS: ALB/GLOB RATIO 1.1 (1.1-1.8); ALBUMIN 3.6 g/dL (3.0-4.8); ALT/SGPT 26 U/L (7-56); AST/SGOT 24 U/L (17-59); BLOOD UREA NITROGEN 12 mg/dL (7-21); CALCIUM 9.8 mg/dL (8.4-10.5); GFR AFRICAN-AMERICAN > 60; GFR NON-AFRICAN AMERICAN > 60
[2017-08-27] MEDS: Insulin Lispro (humaLOG) MEDIUM Coverage SC SCH ×4 (07:58→23:55)
--- NOTE | 2017-08-27 15:47 | CP.PCM.PN ---
<Divya Stack - Last Filed: 08/27/17 16:15> Subjective - Date & Time of Evaluation Date of Evaluation: 08/27/17 Time of Evaluation: 07:15 - Subjective Subjective: PGY-1 Progress Note Patient seen and examined at bedside. Patient denies any chest pain, nausea, vomiting, palpitations, or worsening unilateral weakness or numbness. Nurse reports patient was sweating in the middle of night and vital signs were obtained and normal. Patient reports that it happens occassionally. Otherwise, no adverse events noted overnight. Patient is awaiting accomodations for stroke rehabilitation facility. Objective - Vital Signs/Intake and Output Vital Signs (last 24 hours): Temp Pulse Resp BP Pulse Ox 97.8 F 82 20 123/76 97 08/27/17 12:00 08/27/17 12:00 08/27/17 12:00 08/27/17 12:00 08/26/17 06:00 Intake and Output: 08/27/17 08/27/17 06:59 18:59 Intake Total 520 Balance 520 - Medications Medications: Current Medications Aspirin (Aspirin Chewable) 81 mg PO DAILY [facility] Last Admin: 08/27/17 09:51 Dose: 81 mg Atorvastatin Calcium (Lipitor) 40 mg PO DIN [facility] Last Admin: 08/26/17 18:18 Dose: 40 mg Clopidogrel Bisulfate (Plavix) 75 mg PO DAILY [facility] Last Admin: 08/27/17 09:51 Dose: 75 mg Furosemide (Lasix) 20 mg IVP Q24H [facility] Last Admin: 08/26/17 23:01 Dose: 20 mg Insulin Detemir (Levemir) 10 unit SC BID [facility] Insulin Human Lispro (Humalog Med) 0 units SC ACHS [facility] PRN Reason: Protocol Last Admin: 08/27/17 12:26 Dose: 5 units Metoprolol Tartrate (Lopressor) 5 mg IVP Q6H PRN PRN Reason: HR > 110 - Labs Labs: 08/27/17 05:30 08/27/17 05:30 PT 11.6 SECONDS (9.4-12.5) 08/26/17 05:00 INR 1.01 (0.93-1.08) 08/26/17 05:00 APTT 26.2 Seconds (25.1-36.5) 08/26/17 05:00 Assessment and Plan - Assessment and Plan (Free Text) Assessment: - Constitutional Appears: Well, Non-toxic - Head Exam Head Exam: ATRAUMATIC, NORMOCEPHALIC - Eye Exam Eye Exam: Conjunctival injection, EOMI - ENT Exam ENT Exam: Mucous Membranes Moist - Neck Exam Neck Exam: Normal Inspection - Respiratory Exam Respiratory Exam: Clear to Ausculation Bilateral, NORMAL BREATHING PATTERN. absent: Accessory Muscle Use - Cardiovascular Exam Cardiovascular Exam: RRR, +S1, +S2 - GI/Abdominal Exam GI & Abdominal Exam: Soft, Normal Bowel Sounds - Extremities Exam Extremities Exam: Normal Inspection. absent: Calf Tenderness - Back Exam Back Exam: NORMAL INSPECTION. 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 - Psychiatric Exam Psychiatric exam: Normal Affect, Normal Mood - Skin Skin Exam: Dry, Intact, Normal Color, Warm Plan: 1) Left basal ganglia stroke - Aspirin 21 day and Plavix indefinitely - Left Ventricle is moderately dilated, systolic function is severely impaired, global hypokinesis of the LV, mild to moderate pulmonary hypertension, no left ventricle thrombus noted on exam, the interatrial septum is intact with no evidence of an ASD. - Speech Language Pathologist recommend regular diet as long as patient uses his dentures and to keep patient on aspiration precautions. - PT recommends Acute rehabilitation - OT recommends Acute rehabilitation - Pending Acute rehabilitation. 2) DM II - Levemir 10 mg HS BID - Lispro medium ISS 3) Hypertension - Carvedilol 3.125 mg BID - Lisinopril 5 mg PO daily - Hydrochlorothiazide 25 mg PO daily <Marianna Jordan - Last Filed: 08/29/17 15:14> Objective - Vital Signs/Intake and Output Vital Signs (last 24 hours): Temp Pulse Resp BP Pulse Ox 98.3 F 81 20 95/61 L 98 08/29/17 12:00 08/29/17 12:00 08/29/17 12:00 08/29/17 12:00 08/29/17 06:00 Intake and Output: 08/29/17 08/29/17 06:59 18:59 Intake Total 600 Balance 600 - Medications Medications: Current Medications Aspirin (Aspirin Chewable) 81 mg PO DAILY [facility] Last Admin: 08/29/17 09:10 Dose: 81 mg Atorvastatin Calcium (Lipitor) 40 mg PO DIN [facility] Last Admin: 08/28/17 17:10 Dose: 40 mg Carvedilol (Coreg) 3.125 mg PO BID [facility] Last Admin: 08/29/17 09:10 Dose: 3.125 mg Clopidogrel Bisulfate (Plavix) 75 mg PO DAILY [facility] Last Admin: 08/29/17 09:10 Dose: 75 mg Hydrochlorothiazide (Hydrodiuril) 25 mg PO DAILY [facility] Last Admin: 08/29/17 09:11 Dose: 25 mg Insulin Detemir (Levemir) 10 unit SC BID [facility] Last Admin: 08/29/17 09:11 Dose: 10 unit Insulin Human Lispro (Humalog Med) 0 units SC [facility] PRN Reason: Protocol Last Admin: 08/29/17 12:38 Dose: 3 units Lisinopril (Zestril) 5 mg PO DAILY [facility] Last Admin: 08/29/17 09:11 Dose: 5 mg - Labs Labs: 08/29/17 06:00 08/29/17 06:00 PT 11.6 SECONDS (9.4-12.5) 08/26/17 05:00 INR 1.01 (0.93-1.08) 08/26/17 05:00 APTT 26.2 Seconds (25.1-36.5) 08/26/17 05:00 Attending/Attestation - Attestation I have personally seen and examined this patient.: Yes I have fully participated in the care of the patient.: Yes I have reviewed all pertinent clinical information, including history, physical exam and plan: Yes Notes (Text): 08/29/17 15:12 Medical record note made by the resident after discussion with my direction and input after the patient was personally seen and examined by me. I have reviewed the chart and agree that the record accurately reflects by personal performance of the history, physical exam, data review, and medical decision-making, in the course for the patient. I have also personally directed the plan of care. 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 Patient sensory deficit is improving. Telemetry is negative for arrhythmia, Patient will be discharged to acute rehab Management plan was discussed in detail with patient Education was provided.
[2017-08-27] MEDS: Insulin Detemir 100 units/ml Vial (Levemir) SC SCH (17:31)
[2017-08-28 06:09] LABS: BASO # 0.03 K/mm3 (0.0-2.0); BASO % 0.4 % (0.0-3.0); EOS # 0.1 (0.0-0.7); EOS % 1.6 % (1.5-5.0); GRAN # 4.38 (1.4-6.5); GRAN % 57.8 % (50.0-68.0); HEMOGLOBIN 12.4 g/dL (14.0-18.0); LYMPH # 2.1 (1.2-3.4); LYMPH % 27.9 % (22.0-35.0); MEAN CELL VOLUME 84.4 fl (80.0-105.0); MEAN CORPUSCULAR HEMOGLOBIN 28.1 pg (25.0-35.0); MEAN CORPUSCULAR HGB CONC 33.3 g/dl (31.0-37.0); MEAN PLATELET VOLUME 11.2 fl (7.0-11.0); MONO # 0.9 (0.1-0.6); MONO % 12.3 % (1.0-6.0); RBC 4.41 10^6/uL (3.5-6.1); RED CELL DISTRIBUTION WIDTH 12.2 % (11.5-14.5); WHITE BLOOD COUNT 7.6 10^3/ul (4.5-11.0)
[2017-08-28 06:55] LABS: ALBUMIN 3.6 g/dL (3.0-4.8); ALT/SGPT 28 U/L (7-56); AST/SGOT 30 U/L (17-59); BLOOD UREA NITROGEN 17 mg/dL (7-21); CALCIUM 9.7 mg/dL (8.4-10.5); GFR AFRICAN-AMERICAN > 60; GFR NON-AFRICAN AMERICAN > 60
[2017-08-28] MEDS: Insulin Lispro (humaLOG) MEDIUM Coverage SC SCH ×4 (07:51→22:25)
[2017-08-28] MEDS: Insulin Detemir 100 units/ml Vial (Levemir) SC SCH ×2 (09:25→17:08)
--- NOTE | 2017-08-28 17:10 | CP.PCM.DIS ---
<Divya Stack - Last Filed: 08/29/17 13:42> Provider - Provider Date of Admission: 08/25/17 06:07 Attending physician: Marianna Jordan MD Primary care physician: Nicole Carranza MD Consults: Dr. Witt Time Spent in preparation of Discharge (in minutes): 35 Diagnosis - Discharge Diagnosis (1) CVA (cerebral vascular accident) Status: Acute (2) Diabetes mellitus Status: Chronic Hospital Course - Lab Results Lab Results: Micro Results 08/25/17 06:19 Urine,Clean Catch Urine Culture - Final No Growth (<1,000 CFU/ML) Most Recent Lab Values WBC 7.6 10^3/ul (4.5-11.0) 08/28/17 05:30 RBC 4.41 10^6/uL (3.5-6.1) 08/28/17 05:30 Hgb 12.4 g/dL (14.0-18.0) L 08/28/17 05:30 Hct 37.2 % (42.0-52.0) L 08/28/17 05:30 MCV 84.4 fl (80.0-105.0) 08/28/17 05:30 MCH 28.1 pg (25.0-35.0) 08/28/17 05:30 MCHC 33.3 g/dl (31.0-37.0) 08/28/17 05:30 RDW 12.2 % (11.5-14.5) 08/28/17 05:30 Plt Count 248 10^3/uL (120.0-450.0) 08/28/17 05:30 MPV 11.2 fl (7.0-11.0) H 08/28/17 05:30 Gran % 57.8 % (50.0-68.0) 08/28/17 05:30 Lymph % (Auto) 27.9 % (22.0-35.0) 08/28/17 05:30 [place] % (Auto) 12.3 % (1.0-6.0) H 08/28/17 05:30 Eos % (Auto) 1.6 % (1.5-5.0) 08/28/17 05:30 Baso % (Auto) 0.4 % (0.0-3.0) 08/28/17 05:30 Gran # 4.38 (1.4-6.5) 08/28/17 05:30 Lymph # (Auto) 2.1 (1.2-3.4) 08/28/17 05:30 [place] # (Auto) 0.9 (0.1-0.6) H 08/28/17 05:30 Eos # (Auto) 0.1 (0.0-0.7) 08/28/17 05:30 Baso # (Auto) 0.03 K/mm3 (0.0-2.0) 08/28/17 05:30 PT 11.6 SECONDS (9.4-12.5) 08/26/17 05:00 INR 1.01 (0.93-1.08) 08/26/17 05:00 APTT 26.2 Seconds (25.1-36.5) 08/26/17 05:00 Sodium 141 mmol/L (132-148) 08/28/17 05:30 Potassium 4.2 mmol/L (3.6-5.0) 08/28/17 05:30 Chloride 104 mmol/L (98-107) 08/28/17 05:30 Carbon Dioxide 28 mmol/L (21-33) 08/28/17 05:30 Anion Gap 12 (10-20) 08/28/17 05:30 BUN 17 mg/dL (7-21) 08/28/17 05:30 Creatinine 1.0 mg/dl (0.8-1.5) 08/28/17 05:30 Est GFR ( Amer) > 60 08/28/17 05:30 Est GFR (Non-Af Amer) > 60 08/28/17 05:30 POC Glucose (mg/dL) 263 mg/dL (65-110) H 08/28/17 16:22 Random Glucose 147 mg/dL (70-110) H 08/28/17 05:30 Hemoglobin A1c 8.4 % (4.2-6.5) H 08/25/17 05:00 Calcium 9.7 mg/dL (8.4-10.5) 08/28/17 05:30 Phosphorus 3.5 mg/dL (2.5-4.5) 08/26/17 05:00 Magnesium 1.5 mg/dL (1.7-2.2) L 08/26/17 05:00 Total Bilirubin 0.5 mg/dL (0.2-1.3) 08/28/17 05:30 AST 30 U/L (17-59) 08/28/17 05:30 ALT 28 U/L (7-56) 08/28/17 05:30 Alkaline Phosphatase 86 U/L (38-126) 08/28/17 05:30 Troponin I 0.02 ng/mL 08/25/17 05:00 Total Protein 7.1 g/dL (5.8-8.3) 08/28/17 05:30 Albumin 3.6 g/dL (3.0-4.8) 08/28/17 05:30 Globulin 3.5 gm/dL 08/28/17 05:30 Albumin/Globulin Ratio 1.0 (1.1-1.8) L 08/28/17 05:30 Triglycerides 143 mg/dL (35-160) 08/25/17 05:00 Cholesterol 166 mg/dL (130-200) 08/25/17 05:00 LDL Cholesterol Direct 88 mg/dL (0-129) 08/25/17 05:00 HDL Cholesterol 48 mg/dL (29-60) 08/25/17 05:00 Urine Color Straw (YELLOW) 08/25/17 06:19 Urine Appearance Clear (CLEAR) 08/25/17 06:19 Urine pH 7.5 (4.7-8.0) 08/25/17 06:19 Ur Specific Armstrong <= 1.005 (1.005-1.035) 08/25/17 06:19 Urine Protein Negative mg/dL (<30 mg/dL) 08/25/17 06:19 Urine Glucose (UA) >=1000 mg/dL (NEGATIVE) 08/25/17 06:19 Urine Ketones Negative mg/dL (NEGATIVE) 08/25/17 06:19 Urine Blood Negative (NEGATIVE) 08/25/17 06:19 Urine Nitrate Negative (NEGATIVE) 08/25/17 06:19 Urine Bilirubin Negative (NEGATIVE) 08/25/17 06:19 Urine Urobilinogen 0.2 E.U./dL (<1 E.U./dL) 08/25/17 06:19 Ur Leukocyte Esterase Negative Cassie/uL (NEGATIVE) 08/25/17 06:19 Blood Type B POSITIVE 08/25/17 05:00 Blood Type Confirm B POSITIVE 08/25/17 08:10 Antibody Screen Negative 08/25/17 05:00 BBK History Checked No verified bt 08/25/17 05:00 - Hospital Course Hospital Course: 67 year old male with a past medical history of DM II, Hypertension, dyslipidemia, CAD s/p stent, CHF with EF of 26%, arrhythmia s/p defibrillator, and diverticulosis s/p sigmoid resection who presented with acute onset right sided numbness and word finding difficulties. At time of arrival to the ED the patient was out of the timeframe for tPA. Initial CT of the head was negative and the patient could not undergo an MRI due to his cardiac device incompatibility. A repeat CT of of the head the following day showed an acute left basal ganglia infarct and insular cortex. Permissive hypertension, dual antiplatelet therapy, physical, occupational, speech, and swallow exams were instituted. An TTE with agitated saline was performed that showed no ASD, thrombus and no change in the patient's baseline cardiac status. Throughout the patient hospital course he was monitored closely on telemetry for any arrhythmogenic activity The patient's deficits remained with subjective improvement. The patient was recommended to go to an acute rehabilitation facility for stroke rehabilitation. He was discharged with the below written instructions and recommendations. - Date & Time of H&P Date of H&P: 08/28/17 Time of H&P: 17:38 Discharge Exam - Head Exam Head Exam: ATRAUMATIC, NORMOCEPHALIC - Eye Exam Eye Exam: EOMI, Normal appearance - ENT Exam ENT Exam: Mucous Membranes Moist - Neck Exam Neck exam: Normal Inspection - Respiratory Exam Respiratory Exam: Clear to PA & Lateral, NORMAL BREATHING PATTERN. absent: Accessory Muscle Use - Cardiovascular Exam Cardiovascular Exam: RRR, +S1, +S2 - GI/Abdominal Exam GI & Abdominal Exam: Normal Bowel Sounds. absent: Guarding - Extremities Exam Extremities exam: normal inspection - Back Exam Back exam: absent: CVA tenderness (L), CVA tenderness (R) - Neurological Exam Neurological exam: Alert, Motor Sensory Deficit (right sided sensory disturbance ), Oriented x3 - Psychiatric Exam Psychiatric exam: Normal Affect, Normal Mood - Skin Skin Exam: Dry, Intact, Normal Color, Warm Discharge Plan - Follow Up Plan Condition: GUARDED Disposition: REHAB FACILITY/REHAB UNIT Additional Instructions: 1) Patient to take aspirin 81 mg for 21 days and Plavix indefinitely. 2) Patient to take all medications as directed. 3) Patient to follow up with PMD with one week of discharge. 4) Patient to follow up with Dr. Witt. 5) Patient to go to Acute rehabitation facility Referrals: Nicole Bermeo MD [Primary Care Provider] - Richar Witt MD [Staff Provider] - Clinical Quality Measures - CQM - Stroke Antithrombotic Prescribed: Yes Anticoagulation Prescribed for Atrial Flutter, Atrial Fibrillation and History of:: Not Applicable Statin prescribed: Yes <Marianna Jordan - Last Filed: 08/29/17 15:17> Provider - Provider Date of Admission: 08/25/17 06:07 Attending physician: Marianna Jordan MD Primary care physician: Nicole Carranza MD Hospital Course - Lab Results Lab Results: Micro Results 08/25/17 06:19 Urine,Clean Catch Urine Culture - Final No Growth (<1,000 CFU/ML) Most Recent Lab Values WBC 8.4 10^3/ul (4.5-11.0) 08/29/17 06:00 RBC 4.42 10^6/uL (3.5-6.1) 08/29/17 06:00 Hgb 12.4 g/dL (14.0-18.0) L 08/29/17 06:00 Hct 37.4 % (42.0-52.0) L 08/29/17 06:00 MCV 84.6 fl (80.0-105.0) 08/29/17 06:00 MCH 28.1 pg (25.0-35.0) 08/29/17 06:00 MCHC 33.2 g/dl (31.0-37.0) 08/29/17 06:00 RDW 12.2 % (11.5-14.5) 08/29/17 06:00 Plt Count 267 10^3/uL (120.0-450.0) 08/29/17 06:00 MPV 11.8 fl (7.0-11.0) H 08/29/17 06:00 Gran % 59.6 % (50.0-68.0) 08/29/17 06:00 Lymph % (Auto) 26.3 % (22.0-35.0) 08/29/17 06:00 [place] % (Auto) 11.9 % (1.0-6.0) H 08/29/17 06:00 Eos % (Auto) 1.8 % (1.5-5.0) 08/29/17 06:00 Baso % (Auto) 0.4 % (0.0-3.0) 08/29/17 06:00 Gran # 5.03 (1.4-6.5) 08/29/17 06:00 Lymph # (Auto) 2.2 (1.2-3.4) 08/29/17 06:00 [place] # (Auto) 1.0 (0.1-0.6) H 08/29/17 06:00 Eos # (Auto) 0.2 (0.0-0.7) 08/29/17 06:00 Baso # (Auto) 0.03 K/mm3 (0.0-2.0) 08/29/17 06:00 PT 11.6 SECONDS (9.4-12.5) 08/26/17 05:00 INR 1.01 (0.93-1.08) 08/26/17 05:00 APTT 26.2 Seconds (25.1-36.5) 08/26/17 05:00 Sodium 141 mmol/L (132-148) 08/29/17 06:00 Potassium 4.2 mmol/L (3.6-5.0) 08/29/17 06:00 Chloride 104 mmol/L (98-107) 08/29/17 06:00 Carbon Dioxide 27 mmol/L (21-33) 08/29/17 06:00 Anion Gap 14 (10-20) 08/29/17 06:00 BUN 21 mg/dL (7-21) 08/29/17 06:00 Creatinine 1.1 mg/dl (0.8-1.5) 08/29/17 06:00 Est GFR ( Amer) > 60 08/29/17 06:00 Est GFR (Non-Af Amer) > 60 08/29/17 06:00 POC Glucose (mg/dL) 244 mg/dL (65-110) H 08/29/17 11:46 Random Glucose 109 mg/dL (70-110) 08/29/17 06:00 Hemoglobin A1c 8.4 % (4.2-6.5) H 08/25/17 05:00 Calcium 10.0 mg/dL (8.4-10.5) 08/29/17 06:00 Phosphorus 3.5 mg/dL (2.5-4.5) 08/26/17 05:00 Magnesium 1.5 mg/dL (1.7-2.2) L 08/26/17 05:00 Total Bilirubin 0.5 mg/dL (0.2-1.3) 08/29/17 06:00 AST 29 U/L (17-59) 08/29/17 06:00 ALT 34 U/L (7-56) 08/29/17 06:00 Alkaline Phosphatase 96 U/L (38-126) 08/29/17 06:00 Troponin I 0.02 ng/mL 08/25/17 05:00 Total Protein 7.7 g/dL (5.8-8.3) 08/29/17 06:00 Albumin 4.0 g/dL (3.0-4.8) 08/29/17 06:00 Globulin 3.7 gm/dL 08/29/17 06:00 Albumin/Globulin Ratio 1.1 (1.1-1.8) 08/29/17 06:00 Triglycerides 143 mg/dL (35-160) 08/25/17 05:00 Cholesterol 166 mg/dL (130-200) 08/25/17 05:00 LDL Cholesterol Direct 88 mg/dL (0-129) 08/25/17 05:00 HDL Cholesterol 48 mg/dL (29-60) 08/25/17 05:00 Urine Color Straw (YELLOW) 08/25/17 06:19 Urine Appearance Clear (CLEAR) 08/25/17 06:19 Urine pH 7.5 (4.7-8.0) 08/25/17 06:19 Ur Specific [place] <= 1.005 (1.005-1.035) 08/25/17 06:19 Urine Protein Negative mg/dL (<30 mg/dL) 08/25/17 06:19 Urine Glucose (UA) >=1000 mg/dL (NEGATIVE) 08/25/17 06:19 Urine Ketones Negative mg/dL (NEGATIVE) 08/25/17 06:19 Urine Blood Negative (NEGATIVE) 08/25/17 06:19 Urine Nitrate Negative (NEGATIVE) 08/25/17 06:19 Urine Bilirubin Negative (NEGATIVE) 08/25/17 06:19 Urine Urobilinogen 0.2 E.U./dL (<1 E.U./dL) 08/25/17 06:19 Ur Leukocyte Esterase Negative Cassie/uL (NEGATIVE) 08/25/17 06:19 Blood Type B POSITIVE 08/25/17 05:00 Blood Type Confirm B POSITIVE 08/25/17 08:10 Antibody Screen Negative 08/25/17 05:00 BBK History Checked No verified bt 08/25/17 05:00 Attending/Attestation - Attestation I have personally seen and examined this patient.: Yes I have fully participated in the care of the patient.: Yes I have reviewed all pertinent clinical information, including history, physical exam and plan: Yes Notes (Text): 08/29/17 15:15 Medical record note made by the resident after discussion with my direction and input after the patient was personally seen and examined by me. I have reviewed the chart and agree that the record accurately reflects by personal performance of the history, physical exam, data review, and medical decision-making, in the course for the patient. I have also personally directed the plan of care. 67 yrs old male with PMH of DMII, HTN, CAD s/p stent, Systolic and diastolic CHF with EF of 26%,,SP AICD, ) was admitted with new onset R-sided numbness and speech difficulties.Repeat CT head showed left basal ganglia and insular cortex.Patient has sensory deficit on right side of face .Echo was reviewed, telemetry is unremarkable.Patient numbness is improving. He will be discharged to acute rehab and will follow up with Neurology and Primary care. Management plan was discussed in detail with patient Education was provided.
[2017-08-29 04:29] VITALS: RESP 20
[2017-08-29 06:34] VITALS: O2SAT 98
[2017-08-29 06:57] LABS: BASO # 0.03 K/mm3 (0.0-2.0); BASO % 0.4 % (0.0-3.0); EOS # 0.2 (0.0-0.7); EOS % 1.8 % (1.5-5.0); GRAN # 5.03 (1.4-6.5); GRAN % 59.6 % (50.0-68.0); HEMOGLOBIN 12.4 g/dL (14.0-18.0); LYMPH # 2.2 (1.2-3.4); LYMPH % 26.3 % (22.0-35.0); MEAN CELL VOLUME 84.6 fl (80.0-105.0); MEAN CORPUSCULAR HEMOGLOBIN 28.1 pg (25.0-35.0); MEAN CORPUSCULAR HGB CONC 33.2 g/dl (31.0-37.0); MEAN PLATELET VOLUME 11.8 fl (7.0-11.0); MONO % 11.9 % (1.0-6.0); RBC 4.42 10^6/uL (3.5-6.1); RED CELL DISTRIBUTION WIDTH 12.2 % (11.5-14.5); WHITE BLOOD COUNT 8.4 10^3/ul (4.5-11.0)
[2017-08-29 07:07] LABS: ALB/GLOB RATIO 1.1 (1.1-1.8); ALT/SGPT 34 U/L (7-56); AST/SGOT 29 U/L (17-59); BLOOD UREA NITROGEN 21 mg/dL (7-21); GFR AFRICAN-AMERICAN > 60; GFR NON-AFRICAN AMERICAN > 60
[2017-08-29] MEDS: Insulin Lispro (humaLOG) MEDIUM Coverage SC SCH ×2 (08:02→12:38)
[2017-08-29] MEDS: Insulin Detemir 100 units/ml Vial (Levemir) SC SCH (09:11)
--- NOTE | 2017-08-29 11:36 | CP.PCM.PN ---
Subjective - Date & Time of Evaluation Date of Evaluation: 08/29/17 Time of Evaluation: 11:36 - Subjective Subjective: Mr. Norton was seen and examined at the bedside. He is alert, oriented in all spheres. He denies any headache, dizziness, lightheadedness, blurred vision, nausea, or vomiting. He is able to follow commands. He is able to feed himself with no difficulty. He further claims of fully participating during his therapy session. There is no weakness noted. Echocardiogram showed LV moderately dilated , systolic function is severely impaired, global hypokinesis of the LV. There is no ventricle thrombus with no evidence for an atrial septal defect.. There is mild to moderate pulmonary hypertension.There was no untoward events overnight. Objective - Vital Signs/Intake and Output Vital Signs (last 24 hours): Temp Pulse Resp BP Pulse Ox 97.9 F 86 20 97/62 L 98 08/29/17 06:00 08/29/17 09:11 08/29/17 06:00 08/29/17 09:11 08/29/17 06:00 Intake and Output: 08/29/17 08/29/17 06:59 18:59 Intake Total 600 Balance 600 - Medications Medications: Current Medications Aspirin (Aspirin Chewable) 81 mg PO DAILY [facility] Last Admin: 08/29/17 09:10 Dose: 81 mg Atorvastatin Calcium (Lipitor) 40 mg PO DIN [facility] Last Admin: 08/28/17 17:10 Dose: 40 mg Carvedilol (Coreg) 3.125 mg PO BID [facility] Last Admin: 08/29/17 09:10 Dose: 3.125 mg Clopidogrel Bisulfate (Plavix) 75 mg PO DAILY [facility] Last Admin: 08/29/17 09:10 Dose: 75 mg Hydrochlorothiazide (Hydrodiuril) 25 mg PO DAILY [facility] Last Admin: 08/29/17 09:11 Dose: 25 mg Insulin Detemir (Levemir) 10 unit SC BID [facility] Last Admin: 08/29/17 09:11 Dose: 10 unit Insulin Human Lispro (Humalog Med) 0 units [facility] PRN Reason: Protocol Last Admin: 08/29/17 08:02 Dose: Not Given Lisinopril (Zestril) 5 mg PO DAILY [facility] Last Admin: 08/29/17 09:11 Dose: 5 mg - Labs Labs: 08/29/17 06:00 08/29/17 06:00 PT 11.6 SECONDS (9.4-12.5) 08/26/17 05:00 INR 1.01 (0.93-1.08) 08/26/17 05:00 APTT 26.2 Seconds (25.1-36.5) 08/26/17 05:00 - Constitutional Appears: No Acute Distress - Head Exam Head Exam: NORMAL INSPECTION - Neurological Exam Neurological Exam: Alert, Awake, Oriented x3 Neuro motor strength exam: Left Upper Extremity: 5, Right Upper Extremity: 5, Left Lower Extremity: 5, Right Lower Extremity: 5 Additional comments: Neurological improved from previous examination, no weakness noted and remains alert, oriented in all spheres. Assessment and Plan (1) CVA (cerebral vascular accident) Assessment & Plan: Case discussed with Dr. Fonetnot, continue all current medical, physical, and occupational therapies. May discharge to home with recommendations to follow up with a neurologist or with Dr. Witt at [address] [place] [address] [address]. [facility], [address]. Tel. # [phone]. Status: Acute
[2017-08-29 13:28] VITALS: BP 95/61; TEMP 98.3
[2017-08-29 15:13] VITALS: PULSE 87
--- NOTE | 2017-08-29 19:46 | CP.PCM.PN ---
Subjective - Date & Time of Evaluation Date of Evaluation: 08/28/17 Time of Evaluation: 07:00 - Subjective Subjective: Patient seen and examined at bedside. Patient reports no complaints. Nurse reports no events overnight. Objective - Vital Signs/Intake and Output Vital Signs (last 24 hours): Temp Pulse Resp BP Pulse Ox 98.3 F 87 20 95/61 L 98 08/29/17 12:00 08/29/17 14:00 08/29/17 12:00 08/29/17 12:00 08/29/17 06:00 - Labs Labs: 08/29/17 06:00 08/29/17 06:00 PT 11.6 SECONDS (9.4-12.5) 08/26/17 05:00 INR 1.01 (0.93-1.08) 08/26/17 05:00 APTT 26.2 Seconds (25.1-36.5) 08/26/17 05:00 - Constitutional Appears: Non-toxic, No Acute Distress - Head Exam Head Exam: ATRAUMATIC, NORMOCEPHALIC - Eye Exam Eye Exam: EOMI, Normal appearance - ENT Exam ENT Exam: Mucous Membranes Moist - Neck Exam Neck Exam: Normal Inspection - Respiratory Exam Respiratory Exam: Clear to Ausculation Bilateral, NORMAL BREATHING PATTERN. absent: Accessory Muscle Use - Cardiovascular Exam Cardiovascular Exam: RRR, +S1, +S2 - GI/Abdominal Exam GI & Abdominal Exam: Soft, Normal Bowel Sounds - Extremities Exam Extremities Exam: Normal Inspection. absent: Calf Tenderness - Back Exam Back Exam: NORMAL INSPECTION. absent: CVA tenderness (L), CVA tenderness (R) - Neurological Exam Neurological Exam: Alert, Awake, Oriented x3 Additional comments: right sensory changes compared to left - Psychiatric Exam Psychiatric exam: Normal Affect, Normal Mood - Skin Skin Exam: Dry, Intact, Normal Color, Warm Assessment and Plan (1) CVA (cerebral vascular accident) Status: Acute (2) Diabetes mellitus Status: Chronic - Assessment and Plan (Free Text) Assessment: 67 year old male with a past medical history of DM II, Hypertension, dyslipidemia, CAD s/p stent, CHF with EF of 26%, arrhythmia s/p defibrillator, and diverticulosis s/p sigmoid resection who presented with acute onset right sided numbness and word finding difficulties. At time of arrival to the ED the patient was out of the timeframe for tPA. Initial CT of the head was negative and the patient could not undergo an MRI due to his cardiac device incompatibility. A repeat CT of of the head the following day showed an acute left basal ganglia infarct and insular cortex. Permissive hypertension, dual antiplatelet therapy, physical, occupational, speech, and swallow exams were instituted. An TTE with agitated saline was performed that showed no ASD, thrombus and no change in the patient's baseline cardiac status. Throughout the patient hospital course he was monitored closely on telemetry for any arrhythmogenic activity The patient's deficits remained with subjective improvement. The patient was recommended to go to an acute rehabilitation facility for stroke rehabilitation and is pending insurance authorization Plan: 1) Left basal ganglia stroke - Aspirin 21 day and Plavix indefinitely - Left Ventricle is moderately dilated, systolic function is severely impaired, global hypokinesis of the LV, mild to moderate pulmonary hypertension, no left ventricle thrombus noted on exam, the interatrial septum is intact with no evidence of an ASD. - Speech Language Pathologist recommend regular diet as long as patient uses his dentures and to keep patient on aspiration precautions. - PT recommends Acute rehabilitation - OT recommends Acute rehabilitation - Pending Acute rehabilitation. 2) DM II - Levemir 10 mg HS BID - Lispro medium ISS 3) Hypertension - Carvedilol 3.125 mg BID - Lisinopril 5 mg PO daily - Hydrochlorothiazide 25 mg PO daily
== END 2017-08-29 15:00 | DRG 65 ==
LOC: ED 04:40 → ERH 06:07 → 2RNO 10:44
PROVIDERS: ADMIT Internal Medicine; ATTEND Internal Medicine
DX: I63.9 Cerebral infarction, unspecified (principal); I50.40 Unspecified combined systolic (congestive) and diastolic (congestive) heart failure; E11.65 Type 2 diabetes mellitus with hyperglycemia; I25.10 Atherosclerotic heart disease of native coronary artery without angina pectoris; I11.0 Hypertensive heart disease with heart failure; R29.704 NIHSS score 4; E78.5 Hyperlipidemia, unspecified; I27.20 Pulmonary hypertension, unspecified; R47.01 Aphasia; Z79.02 Long term (current) use of antithrombotics/antiplatelets; Z79.82 Long term (current) use of aspirin; Z95.810 Presence of automatic (implantable) cardiac defibrillator; Z95.5 Presence of coronary angioplasty implant and graft; Z87.891 Personal history of nicotine dependence; Z82.49 Family history of ischemic heart disease and other diseases of the circulatory system